=== PATIENT | male | born 1960 | race Caucasian/White ===

== ENCOUNTER → 2020-08-22 | Outpatient (CLI) | payer OTHER ==
[~2020-08-22] MED LIST: BUPR100T11 PO; FLUO20CA19 PO; FLUO40CA2 PO; HYDR-3246 PO; LIDO700A42 TD; MULT-658 PO; PANT40TA6 PO; PROP10TA16 PO; QUET50TA PO; TERB250T14 PO
== END | disposition home or self-care (01) ==
LOC: STAR 09:32
PROVIDERS: ATTEND Thoracic Surgery (Cardiothoracic Vascular Surgery)
DX: Z01.812 Encounter for preprocedural laboratory examination (principal); Z20.828 Contact with and (suspected) exposure to other viral communicable diseases
CPT/HCPCS: 36415; 87635

== ENCOUNTER 2020-08-27 08:54 | Day surgery (SDC) | payer OTHER ==
[~2020-08-27] VITALS: Ht 185.4 cm; Wt 103.3 kg
[~2020-08-27 08:54] MED LIST changes: +BUPIVACAINE/PF 0.5% ONE; +EPINEPHRINE 1 MG/ML, 1ML ONE; +FENTANYL PF 250 MCG/5ML ONE; +MIDAZOLAM 1 MG/ML, 2ML ONE
[2020-08-27] MEDS ORDERED: LACTATED RINGERS 1,000 ML IV SCH ×2 (09:27→12:21)
[2020-08-27] MEDS ORDERED: CHLORHEXIDINE 15 ML UDC MM ONE (09:30)
[2020-08-27] MEDS ORDERED: PROPOFOL 10 MG/ML, 20ML ONE (11:11)
[2020-08-27] MEDS ORDERED: CEFAZOLIN 1,000 MG ONE (11:11)
[2020-08-27] MEDS ORDERED: ROCURONIUM 10MG/ML,5ML ONE (11:11)
[2020-08-27] MEDS ORDERED: SUCCINYLCHOLINE 20 MG/ML, 10ML ONE (11:11)
[2020-08-27] MEDS ORDERED: DEXAMETHASONE 4 MG/ML, 1ML ONE (11:11)
[2020-08-27] MEDS ORDERED: ONDANSETRON 2MG/ML, 2ML ONE (11:11)
[2020-08-27] MEDS ORDERED: BUPIVACAINE/PF-EPI 0.5% 1:200K INFIL ONE (11:29)
[2020-08-27] MEDS ORDERED: BUPIVACAINE/PF 0.25% INFIL ONE (11:29)
[2020-08-27] MEDS ORDERED: hydrALAzine 20 MG/ML, 1ML IV PRN (12:00)
[2020-08-27] MEDS ORDERED: PROMETHAZINE 25 MG/ML, 1ML IV PRN (12:00)
[2020-08-27] MEDS ORDERED: MEPERIDINE/PF 25MG/0.5ML IVPush PRN (12:00)
[2020-08-27] MEDS ORDERED: ONDANSETRON 2MG/ML, 2ML IVPush PRN ×2 (12:00→12:30)
[2020-08-27] MEDS ORDERED: ALBUTEROL SULFATE 2.5 MG/3 ML NPPB PRN (12:00)
[2020-08-27] MEDS ORDERED: OXYcodone 5 MG/5 ML ORAL.SOL UDC PO PRN (12:00)
[2020-08-27] MEDS ORDERED: METOCLOPRAMIDE 5 MG/ML, 2ML IV PRN (12:00)
[2020-08-27] MEDS ORDERED: KETOROLAC 30 MG/1 ML IV PRN (12:00)
[2020-08-27] MEDS ORDERED: LABETALOL 5MG/ML, 20ML IV PRN (12:00)
[2020-08-27] MEDS ORDERED: DIAZEPAM 5 MG/ML, 2ML IV PRN ×2 (12:00)
[2020-08-27] MEDS ORDERED: FENTANYL PF 100 MCG/2ML ONE ×2 (12:18→12:46)
[2020-08-27] MEDS: FENTANYL PF 100 MCG/2ML IV PRN ×4 (12:20→13:02)
[2020-08-27] MEDS ORDERED: OXYcodone 5 MG/5 ML ORAL.SOL UDC ONE (12:26)
[2020-08-27] MEDS ORDERED: KETOROLAC 30 MG/1 ML ONE (12:26)
[2020-08-27] MEDS ORDERED: morphine SULFATE 10 MG/ML, 1ML IVPush PRN (12:30)
[2020-08-27] MEDS ORDERED: HYDROcodone/APAP 7.5-325MG/15ML UDC PO PRN (12:30)
[2020-08-27] MEDS ORDERED: DIPHENHYDRAMINE 50 MG/ML, 1ML IVPush PRN (12:30)
[2020-08-27] MEDS ORDERED: METHOCARBAMOL 1,000 MG in DEXTROSE 5% 100 ML IV ONE (13:00)
[2020-08-27] MEDS ORDERED: HYDROmorphone 1 MG/ML, 1ML INJ ONE ×2 (13:03→13:20)
[2020-08-27] MEDS: HYDROmorphone 1 MG/ML, 1ML INJ IV PRN ×5 (13:05→14:19)
[2020-08-27] MEDS ORDERED: LABETALOL 5MG/ML, 20ML ONE (13:16)
== END 2020-08-27 15:15 | disposition home or self-care (01) ==
LOC: OUT 08:54
PROVIDERS: ATTEND Thoracic Surgery (Cardiothoracic Vascular Surgery)
DX: K44.9 Diaphragmatic hernia without obstruction or gangrene (principal); K21.9 Gastro-esophageal reflux disease without esophagitis; F32.9 Major depressive disorder, single episode, unspecified; Z98.84 Bariatric surgery status; Z88.3 Allergy status to other anti-infective agents; Z90.49 Acquired absence of other specified parts of digestive tract; Z98.890 Other specified postprocedural states; Z79.899 Other long term (current) drug therapy; Z87.891 Personal history of nicotine dependence; Z83.3 Family history of diabetes mellitus; Z80.1 Family history of malignant neoplasm of trachea, bronchus and lung
CPT/HCPCS: 43281; J0171; J0330; J0690; J1100; J1170; J1885; J2250; J2405; J2704; J2800; J3010; J7120; J3490

== ENCOUNTER 2021-03-26 08:46 | Outpatient (CLI) | payer OTHER ==
[~2021-03-26 08:46] MED LIST changes: -BUPIVACAINE/PF 0.5% ONE; -EPINEPHRINE 1 MG/ML, 1ML ONE; -FENTANYL PF 250 MCG/5ML ONE; -HYDR-3246 PO; +HYDR-3248 PO; -MIDAZOLAM 1 MG/ML, 2ML ONE
[2021-03-26] MEDS ORDERED: TERB250T14 PO (09:28)
[2021-03-26] MEDS ORDERED: TIZA4CAP PO (09:28)
[2021-03-26] MEDS ORDERED: HYDR-3248 PO (09:28)
[2021-03-26] MEDS ORDERED: DOCU-131 PO (09:28)
[2021-03-26] MEDS ORDERED: ACET325T14 PO (09:28)
[2021-03-26 10:09] LABS: BASOPHILS % (AUTO) 0 % (0-1); EOSINOPHILS % (AUTO) 3 % (1-7); LYMPHOCYTES % (AUTO) 36 % (22-44); MEAN CORPUSCULAR HEMOGLOBIN 31.6 pg (27.5-34.5); MEAN PLATELET VOLUME 8.1 fL (7.4-10.4); MONOCYTES % (AUTO) 12 % (2-9); NEUTROPHILS % (AUTO) 48 % (42-75); PLATELET COUNT 290 x10^3/uL (130-400); RED BLOOD COUNT 4.63 x10^6/uL (4.38-5.82); RED CELL DISTRIBUTION WIDTH 13.7 % (9.4-14.8)
[2021-03-26 10:13] LABS: MICROSCOPIC NOT IND
[2021-03-26 10:13] LABS: MD NO
[2021-03-26 10:20] LABS: INTERNATIONAL NORMALIZED RATIO 0.92 (0.93-1.1); PROTHROMBIN TIME 9.9 Seconds (9.6-11.5)
[2021-03-26 10:21] LABS: CHLORIDE 107 mmol/L (98-107); CREATININE 0.84 mg/dL (0.7-1.3)
[2021-03-26 10:27] LABS: ANION GAP 4 mmol/L (5-15)
== END 2021-03-26 23:59 | disposition home or self-care (01) ==
LOC: STAR 08:46
PROVIDERS: ATTEND Neurological Surgery
DX: Z01.812 Encounter for preprocedural laboratory examination (principal); Z20.822 Contact with and (suspected) exposure to COVID-19; Z01.810 Encounter for preprocedural cardiovascular examination; Z01.818 Encounter for other preprocedural examination; Z01.811 Encounter for preprocedural respiratory examination; R94.31 Abnormal electrocardiogram [ECG] [EKG]; R79.1 Abnormal coagulation profile; R82.90 Unspecified abnormal findings in urine; M48.061 Spinal stenosis, lumbar region without neurogenic claudication; M43.16 Spondylolisthesis, lumbar region; M54.16 Radiculopathy, lumbar region; M54.5 Low back pain; M43.8X4 Other specified deforming dorsopathies, thoracic region; I45.10 Unspecified right bundle-branch block
CPT/HCPCS: 36415; 71046; 80048; 81003; 85025; 85610; 85730; 93005; U0003

== ENCOUNTER 2021-04-21 06:31 | Inpatient (IN) | payer OTHER ==
[~2021-04-21] VITALS: Ht 185.4 cm; Wt 112.3 kg
[~2021-04-21 06:31] MED LIST changes: +ACET325T14 PO; +DOCU-131 PO; +TIZA4CAP PO
[2021-04-21] MEDS: LACTATED RINGERS 1,000 ML IV SCH (09:29)
[2021-04-21] MEDS ORDERED: CHLORHEXIDINE 15 ML UDC PO ONE (09:30)
[2021-04-21] MEDS ORDERED: EPINEPHRINE 1 MG/ML, 1ML ONE (09:32)
[2021-04-21] MEDS ORDERED: BUPIVACAINE/PF 0.5% ONE (09:32)
[2021-04-21] MEDS ORDERED: BACITRACIN 50,000 UNIT ONE (09:32)
[2021-04-21] MEDS ORDERED: VANCOMYCIN 1,000 MG ONE (09:32)
[2021-04-21] MEDS ORDERED: HALOPERIDOL 5 MG/ML IV PRN (10:00)
[2021-04-21] MEDS ORDERED: LABETALOL 5MG/ML, 20ML IV PRN (10:00)
[2021-04-21] MEDS ORDERED: OXYcodone 5 MG/5 ML ORAL.SOL UDC PO PRN (10:00)
[2021-04-21] MEDS ORDERED: DIPHENHYDRAMINE 50 MG/ML, 1ML IVPush PRN ×2 (10:00→11:30)
[2021-04-21] MEDS ORDERED: MEPERIDINE/PF 25MG/0.5ML IVPush PRN (10:00)
[2021-04-21] MEDS ORDERED: ACETAMINOPHEN 325 MG TABLET PO PRN (10:00)
[2021-04-21] MEDS ORDERED: PROMETHAZINE 25 MG/ML, 1ML IVPush PRN (10:00)
[2021-04-21] MEDS ORDERED: FENTANYL PF 100 MCG/2ML IV PRN (10:00)
[2021-04-21] MEDS ORDERED: hydrALAzine 20 MG/ML, 1ML IV PRN (10:00)
[2021-04-21] MEDS ORDERED: MEPERIDINE/PF 25MG/ML,1ML ONE (11:24)
[2021-04-21] MEDS ORDERED: HYDROmorphone 1 MG/ML, 1ML INJ ONE ×2 (11:24→11:53)
[2021-04-21] MEDS ORDERED: OXYcodone 5 MG/5 ML ORAL.SOL UDC ONE (11:24)
[2021-04-21] MEDS: HYDROmorphone 1 MG/ML, 1ML INJ IVPush PRN ×9 (11:29→22:54)
[2021-04-21] MEDS ORDERED: PROMETHAZINE 25 MG/ML, 1ML IM PRN (11:30)
[2021-04-21] MEDS ORDERED: MAGNESIUM HYDROXIDE 8%, 30ML UDC PO PRN (11:30)
[2021-04-21] MEDS ORDERED: BISACODYL 10 MG SUPP PR PRN (11:30)
[2021-04-21] MEDS ORDERED: HYDROcodone/APAP 5/325 TABLET PO PRN (11:30)
[2021-04-21] MEDS ORDERED: LABETALOL 5MG/ML, 20ML IVPush PRN (11:30)
[2021-04-21] MEDS ORDERED: METHOCARBAMOL 1,000 MG in DEXTROSE 5% 100 ML IV ONE ×2 (11:30)
[2021-04-21] MEDS ORDERED: PHARMACY MAY ADJ FOR RENAL FX MC PRN (11:30)
[2021-04-21] MEDS ORDERED: SENNA/DOCUSATE TABLET PO PRN (11:30)
[2021-04-21] MEDS ORDERED: DIPHENHYDRAMINE 50 MG/ML, 1ML IM PRN (11:30)
[2021-04-21] MEDS ORDERED: ONDANSETRON 2MG/ML, 2ML IVPush PRN (11:30)
[2021-04-21] MEDS ORDERED: DIPHENHYDRAMINE 50 MG CAPSULE PO PRN (11:30)
[2021-04-21 13:09] VITALS: BP 128/94
[2021-04-21] MEDS: OXYcodone/APAP 5/325MG TABLET PO PRN ×2 (15:37→20:37)
[2021-04-21] MEDS: BUPROPION 100 MG TABLET PO SCH ×2 (15:37→20:37)
[2021-04-21] MEDS: D5%-0.9% NACL+KCL 20MEQ 1,000 ML IV SCH ×2 (17:28→21:30)
[2021-04-21] MEDS: CEFAZOLIN PMX 1GM/50ML 50 ML IVPB SCH (17:29)
[2021-04-21 19:32] VITALS: BP 154/96
[2021-04-21] MEDS: SODIUM CHLORIDE FLUSH 10ML SYR IVF SCH (20:37)
[2021-04-21] MEDS: QUETIAPINE 25MG TABLET PO SCH (20:37)
[2021-04-21] MEDS ORDERED: FLUOXETINE HCL 20 MG CAPSULE PO SCH (21:00)
[2021-04-21 23:04] VITALS: BP 113/80
[2021-04-22] MEDS: METHOCARBAMOL 750 MG TABLET PO PRN ×2 (00:41→08:29)
[2021-04-22] MEDS: OXYcodone/APAP 5/325MG TABLET PO PRN ×7 (00:42→23:05)
[2021-04-22] MEDS: CEFAZOLIN PMX 1GM/50ML 50 ML IVPB SCH (01:35)
[2021-04-22] MEDS: HYDROmorphone 1 MG/ML, 1ML INJ IVPush PRN ×6 (02:28→21:17)
[2021-04-22 04:29] VITALS: BP 105/60
[2021-04-22] MEDS ORDERED: ENOXAPARIN 40 MG/0.4 ML SQ SCH (06:00)
[2021-04-22 06:35] VITALS: BP 117/71
[2021-04-22] MEDS: TERBINAFINE 250MG TABLET PO SCH (08:10)
[2021-04-22] MEDS: BUPROPION 100 MG TABLET PO SCH ×3 (08:10→20:26)
[2021-04-22] MEDS: SODIUM CHLORIDE FLUSH 10ML SYR IVF SCH ×2 (08:10→20:57)
[2021-04-22] MEDS: PANTOPRAZOLE 40MG TABLET PO SCH (08:10)
[2021-04-22] MEDS: FLUOXETINE HCL 20 MG CAPSULE PO SCH (08:10)
[2021-04-22 14:08] VITALS: BP 127/80
[2021-04-22] MEDS: METHOCARBAMOL 750 MG TABLET PO SCH ×2 (14:18→20:26)
[2021-04-22] MEDS ORDERED: HYDROmorphone 1 MG/ML, 1ML INJ ONE (14:36)
[2021-04-22] MEDS ORDERED: FENTANYL PF 250 MCG/5ML ONE (14:36)
[2021-04-22] MEDS ORDERED: ONDANSETRON 2MG/ML, 2ML ONE (14:36)
[2021-04-22] MEDS ORDERED: MIDAZOLAM 1 MG/ML, 2ML ONE (14:36)
[2021-04-22] MEDS ORDERED: DEXAMETHASONE 4 MG/ML, 1ML ONE (14:36)
[2021-04-22] MEDS ORDERED: PROPOFOL 10 MG/ML, 50ML ONE (14:36)
[2021-04-22] MEDS ORDERED: CEFAZOLIN 1,000 MG ONE (14:36)
[2021-04-22] MEDS ORDERED: PROPOFOL 10 MG/ML, 20ML ONE (14:36)
[2021-04-22] MEDS ORDERED: SUCCINYLCHOLINE 20 MG/ML, 10ML ONE (14:36)
[2021-04-22] MEDS ORDERED: ROCURONIUM 10MG/ML,5ML ONE (14:36)
[2021-04-22] MEDS: D5%-0.9% NACL+KCL 20MEQ 1,000 ML IV SCH ×2 (15:36→17:30)
[2021-04-22] MEDS: QUETIAPINE 25MG TABLET PO SCH (20:26)
[2021-04-22 20:46] VITALS: BP 122/76
[2021-04-23] MEDS: HYDROmorphone 1 MG/ML, 1ML INJ IVPush PRN ×9 (00:14→21:23)
[2021-04-23] MEDS: METHOCARBAMOL 750 MG TABLET PO SCH ×3 (02:13→14:18)
[2021-04-23 02:24] VITALS: BP 117/78
[2021-04-23] MEDS: D5%-0.9% NACL+KCL 20MEQ 1,000 ML IV SCH ×3 (03:30→23:30)
[2021-04-23] MEDS: OXYcodone/APAP 5/325MG TABLET PO PRN ×3 (04:30→23:33)
[2021-04-23 07:37] VITALS: BP 136/83
[2021-04-23] MEDS: SODIUM CHLORIDE FLUSH 10ML SYR IVF SCH ×2 (08:17→20:36)
[2021-04-23] MEDS: BUPROPION 100 MG TABLET PO SCH ×3 (08:17→23:33)
[2021-04-23] MEDS: PANTOPRAZOLE 40MG TABLET PO SCH (08:17)
[2021-04-23] MEDS: TERBINAFINE 250MG TABLET PO SCH (08:17)
[2021-04-23] MEDS: FLUOXETINE HCL 20 MG CAPSULE PO SCH (08:17)
[2021-04-23 13:47] VITALS: BP 128/81
[2021-04-23] MEDS ORDERED: CHLORHEXIDINE 15 ML UDC ONE (14:38)
[2021-04-23] MEDS ORDERED: LACTATED RINGERS 1,000 ML IV SCH (15:00)
[2021-04-23] MEDS ORDERED: CHLORHEXIDINE 15 ML UDC PO ONE (15:00)
[2021-04-23] MEDS ORDERED: FENTANYL PF 250 MCG/5ML ONE ×3 (15:13→17:49)
[2021-04-23] MEDS ORDERED: MIDAZOLAM 1 MG/ML, 2ML ONE (15:13)
[2021-04-23] MEDS ORDERED: NEOSTIGMINE 1 MG/ML, 10ML ONE (15:14)
[2021-04-23] MEDS ORDERED: PROPOFOL 10 MG/ML, 20ML ONE (15:14)
[2021-04-23] MEDS ORDERED: GLYCOPYRROLATE 0.2MG/1ML, 5ML ONE (15:14)
[2021-04-23] MEDS ORDERED: CEFAZOLIN 1,000 MG ONE (15:14)
[2021-04-23] MEDS ORDERED: ROCURONIUM 10MG/ML,5ML ONE (15:14)
[2021-04-23] MEDS ORDERED: PROPOFOL 100 ML ONE (15:15)
[2021-04-23] MEDS ORDERED: LABETALOL 5MG/ML, 20ML IV PRN (15:30)
[2021-04-23] MEDS: LACTATED RINGERS 1,000 ML IV SCH (15:30)
[2021-04-23] MEDS ORDERED: morphine SULFATE 10 MG/ML, 1ML IVPush PRN (15:30)
[2021-04-23] MEDS ORDERED: hydrALAzine 20 MG/ML, 1ML IV PRN (15:30)
[2021-04-23] MEDS ORDERED: MEPERIDINE/PF 25MG/0.5ML IVPush PRN (15:30)
[2021-04-23] MEDS ORDERED: ACETAMINOPHEN 325 MG TABLET PO PRN (15:30)
[2021-04-23] MEDS ORDERED: ONDANSETRON 2MG/ML, 2ML IVPush PRN ×2 (15:30→19:00)
[2021-04-23] MEDS ORDERED: OXYcodone 5 MG/5 ML ORAL.SOL UDC PO PRN (15:30)
[2021-04-23] MEDS ORDERED: DEXAMETHASONE 4 MG/ML, 1ML ONE ×2 (16:41)
[2021-04-23] MEDS ORDERED: ONDANSETRON 2MG/ML, 2ML ONE ×2 (16:41)
[2021-04-23] MEDS ORDERED: SUGAMMADEX 200 MG/2 ML IVPush ONE (16:42)
[2021-04-23] MEDS ORDERED: BUPIVACAINE/PF-EPI 0.5% 1:200K INFIL ONE (17:03)
[2021-04-23] MEDS ORDERED: BACITRACIN 50,000 UNIT IRRIG ONE (17:04)
[2021-04-23] MEDS ORDERED: VANCOMYCIN 1,000 MG IM ONE (17:05)
[2021-04-23] MEDS ORDERED: PROPOFOL 50 ML ONE (17:55)
[2021-04-23] MEDS ORDERED: DIPHENHYDRAMINE 50 MG/ML, 1ML IVPush PRN (19:00)
[2021-04-23] MEDS ORDERED: KETOROLAC 30 MG/1 ML IVPush ONE (19:00)
[2021-04-23] MEDS ORDERED: LABETALOL 5MG/ML, 20ML IVPush PRN (19:00)
[2021-04-23] MEDS ORDERED: METHOCARBAMOL 1,000 MG in DEXTROSE 5% 100 ML IV ONE (19:00)
[2021-04-23] MEDS ORDERED: BISACODYL 10 MG SUPP PR PRN (19:00)
[2021-04-23] MEDS ORDERED: DIPHENHYDRAMINE 50 MG/ML, 1ML IM PRN (19:00)
[2021-04-23] MEDS ORDERED: MAGNESIUM HYDROXIDE 8%, 30ML UDC PO PRN (19:00)
[2021-04-23] MEDS ORDERED: PHARMACY MAY ADJ FOR RENAL FX MC PRN (19:00)
[2021-04-23] MEDS ORDERED: PROMETHAZINE 25 MG/ML, 1ML IM PRN (19:00)
[2021-04-23] MEDS ORDERED: SENNA/DOCUSATE TABLET PO PRN (19:00)
[2021-04-23] MEDS ORDERED: DIPHENHYDRAMINE 50 MG CAPSULE PO PRN (19:00)
[2021-04-23] MEDS ORDERED: FENTANYL PF 100 MCG/2ML ONE (19:02)
[2021-04-23] MEDS ORDERED: HYDROmorphone 1 MG/ML, 1ML INJ ONE ×2 (19:02→19:31)
[2021-04-23] MEDS ORDERED: OXYcodone 5 MG/5 ML ORAL.SOL UDC ONE (19:02)
[2021-04-23] MEDS: FENTANYL PF 100 MCG/2ML IV PRN ×2 (19:10→19:19)
[2021-04-23] MEDS ORDERED: KETOROLAC 30 MG/1 ML ONE (19:20)
[2021-04-23 20:15] VITALS: BP 133/84
[2021-04-23] MEDS: NS + 20MEQ KCL 1,000 ML IV SCH (20:35)
[2021-04-23] MEDS: QUETIAPINE 25MG TABLET PO SCH (23:34)
[2021-04-23] MEDS: CEFAZOLIN PMX 1GM/50ML 50 ML IVPB SCH (23:36)
[2021-04-24 00:20] VITALS: BP 123/80
[2021-04-24] MEDS: HYDROmorphone 1 MG/ML, 1ML INJ IVPush PRN ×8 (01:32→23:04)
[2021-04-24] MEDS: OXYcodone/APAP 5/325MG TABLET PO PRN ×2 (03:25→07:41)
[2021-04-24 03:31] VITALS: BP 134/86
[2021-04-24] MEDS ORDERED: METHOCARBAMOL 750 MG TABLET PO PRN (04:00)
[2021-04-24 05:20] LABS: BASOPHILS % (AUTO) 0 % (0-1); EOSINOPHILS % (AUTO) 0 % (1-7); LYMPHOCYTES % (AUTO) 9 % (22-44); MEAN CORPUSCULAR HGB CONC 34.7 g/dL (33.2-36.2); MEAN PLATELET VOLUME 8.6 fL (7.4-10.4); MONOCYTES % (AUTO) 10 % (2-9); NEUTROPHILS % (AUTO) 81 % (42-75); PLATELET COUNT 224 x10^3/uL (130-400); RED BLOOD COUNT 3.86 x10^6/uL (4.38-5.82)
[2021-04-24 05:30] LABS: ALBUMIN 2.9 g/dL (3.4-5.0); ANION GAP 8 mmol/L (5-15); CHLORIDE 104 mmol/L (98-107)
[2021-04-24 05:31] LABS: MD NO
[2021-04-24 05:31] LABS: CREATININE 0.86 mg/dL (0.7-1.3)
[2021-04-24] MEDS: ENOXAPARIN 40 MG/0.4 ML SQ SCH (06:05)
[2021-04-24 06:35] VITALS: BP 108/67
[2021-04-24] MEDS: CEFAZOLIN PMX 1GM/50ML 50 ML IVPB SCH (07:36)
[2021-04-24] MEDS: NS + 20MEQ KCL 1,000 ML IV SCH ×2 (08:20→21:40)
[2021-04-24] MEDS: TERBINAFINE 250MG TABLET PO SCH (08:21)
[2021-04-24] MEDS: FLUOXETINE HCL 20 MG CAPSULE PO SCH (08:21)
[2021-04-24] MEDS: BUPROPION 100 MG TABLET PO SCH ×3 (08:22→22:01)
[2021-04-24] MEDS: SODIUM CHLORIDE FLUSH 10ML SYR IVF SCH ×2 (08:22→20:00)
[2021-04-24] MEDS: PANTOPRAZOLE 40MG TABLET PO SCH (08:22)
[2021-04-24] MEDS: D5%-0.9% NACL+KCL 20MEQ 1,000 ML IV SCH ×2 (09:19→16:17)
[2021-04-24] MEDS: OXYcodone IR 5MG TABLET PO PRN ×4 (11:10→21:13)
[2021-04-24] MEDS: METHOCARBAMOL 750 MG TABLET PO SCH ×2 (11:58→20:00)
[2021-04-24 14:34] VITALS: BP 125/79
[2021-04-24 20:41] VITALS: BP 127/80
[2021-04-24] MEDS: QUETIAPINE 25MG TABLET PO SCH (22:01)
[2021-04-25] MEDS: OXYcodone IR 5MG TABLET PO PRN ×4 (00:15→09:44)
[2021-04-25 01:18] VITALS: BP 101/67
[2021-04-25] MEDS: HYDROmorphone 1 MG/ML, 1ML INJ IVPush PRN ×2 (01:51→05:00)
[2021-04-25] MEDS: METHOCARBAMOL 750 MG TABLET PO SCH (03:50)
[2021-04-25 04:40] LABS: BASOPHILS % (AUTO) 0 % (0-1); EOSINOPHILS % (AUTO) 2 % (1-7); LYMPHOCYTES % (AUTO) 25 % (22-44); MEAN CORPUSCULAR HEMOGLOBIN 31.9 pg (27.5-34.5); MEAN CORPUSCULAR HGB CONC 34.7 g/dL (33.2-36.2); MEAN PLATELET VOLUME 8.9 fL (7.4-10.4); MONOCYTES % (AUTO) 15 % (2-9); NEUTROPHILS % (AUTO) 57 % (42-75); PLATELET COUNT 238 x10^3/uL (130-400); RED BLOOD COUNT 3.77 x10^6/uL (4.38-5.82)
[2021-04-25] MEDS: ENOXAPARIN 40 MG/0.4 ML SQ SCH (05:00)
[2021-04-25 05:15] LABS: MD SCAN
[2021-04-25] MEDS: D5%-0.9% NACL+KCL 20MEQ 1,000 ML IV SCH (05:30)
[2021-04-25 07:36] VITALS: BP 119/80
[2021-04-25] MEDS: SODIUM CHLORIDE FLUSH 10ML SYR IVF SCH (09:00)
[2021-04-25] MEDS: BUPROPION 100 MG TABLET PO SCH (09:43)
[2021-04-25] MEDS: TERBINAFINE 250MG TABLET PO SCH (09:43)
[2021-04-25] MEDS: PANTOPRAZOLE 40MG TABLET PO SCH (09:43)
[2021-04-25] MEDS: FLUOXETINE HCL 20 MG CAPSULE PO SCH (09:44)
[2021-04-25] MEDS: NS + 20MEQ KCL 1,000 ML IV SCH (11:00)
[2021-04-25] MEDS ORDERED: ACETAMINOPHEN 500 MG TABLET PO PRN (11:00)
[2021-04-25] MEDS ORDERED: OXYcodone IR 5MG TABLET PO PRN (11:02)
[2021-04-25] MEDS ORDERED: METHOCARBAMOL 750 MG TABLET PO PRN (11:30)
[2021-04-25 14:02] VITALS: BP 130/78
[2021-04-25] MEDS ORDERED: OXYC5CAP2 PO (14:13)
[2021-04-25] MEDS ORDERED: METH-640 PO (14:14)
[2021-04-26] MEDS ORDERED: METHOCARBAMOL 750 MG TABLET PO SCH (03:00)
== END 2021-04-25 14:45 | disposition home health service (06) | DRG 455 ==
LOC: ORIP 06:31 → UNDOADMIN 06:31 → ORIP 06:33 → UNDOADMIN 06:33 → ORIP 08:11 → 4NE 12:47 → 4EST 04-23 14:09 → DCLOUNGE 04-25 14:35
PROVIDERS: ADMIT Neurological Surgery; ATTEND Neurological Surgery
PROC: 0SG00K0 Fusion of Lumbar Vertebral Joint with Nonautologous Tissue Substitute, Anterior Approach, Anterior Column, Open Approach (ICD-10-PCS; 2021-04-21)
PROC: 0SB20ZZ Excision of Lumbar Vertebral Disc, Open Approach (ICD-10-PCS; 2021-04-21)
PROC: 4A11X4G Monitoring of Peripheral Nervous Electrical Activity, Intraoperative, External Approach (ICD-10-PCS; 2021-04-21)
PROC: 0SG00A0 Fusion of Lumbar Vertebral Joint with Interbody Fusion Device, Anterior Approach, Anterior Column, Open Approach (ICD-10-PCS; principal; 2021-04-21 10:00)
PROC: 0SG0071 Fusion of Lumbar Vertebral Joint with Autologous Tissue Substitute, Posterior Approach, Posterior Column, Open Approach (ICD-10-PCS; 2021-04-23)
PROC: 01NB0ZZ Release Lumbar Nerve, Open Approach (ICD-10-PCS; 2021-04-23)
PROC: 01NR0ZZ Release Sacral Nerve, Open Approach (ICD-10-PCS; 2021-04-23)
PROC: 4A11X4G Monitoring of Peripheral Nervous Electrical Activity, Intraoperative, External Approach (ICD-10-PCS; 2021-04-23)
PROC: 8E0W0CZ Robotic Assisted Procedure of Trunk Region, Open Approach (ICD-10-PCS; 2021-04-23)
DX: M48.062 Spinal stenosis, lumbar region with neurogenic claudication (principal); M43.16 Spondylolisthesis, lumbar region; M54.16 Radiculopathy, lumbar region; Z91.041 Radiographic dye allergy status
CPT/HCPCS: 36415; 72100; S0020; 72131; 80048; 82040; 85025; G0378; J0171; J0690; J1100; J1170; J1650; J1885; J2250; J2405; J2704; J2710; J3010; J3370; J3480; U0005; J0330; J2800; J7120; U0003